=== PATIENT | male | born 1965 | race Caucasian/White ===

== ENCOUNTER 2020-10-22 15:00 | Outpatient (RCR) | payer MEDICARE, MEDICAID, SELFPAY ==
--- NOTE | 2020-10-27 14:33 | MHC.PT.DC ---
[facility] [place] Office [place] Office [place] Office [address] Yonathan Sharma [address] [phone] F: [phone] F: [phone] F: [phone] F: [phone] Physical Therapy Discharge Report Diagnosis: RIGHT SIDED WEAKNESS S/P CVA 2018 () Date of Surgery: NA Date of Evaluation: 08/04/20 Date of Discharge: 10/27/20 Treatments to Date: 14 Cancellations to Date: 1 No Shows to Date: 0 Discharge Status: Improved Function Independent with HEP Patient Elected to Stop Discharge Summary: Hayden phoned the office cancelling last appointments as he feels he has plateaued in treatment. At this time we would continue to recommend a custom AFO as his current brace does not allow for dorsiflexion assist and tends to cause greater foot drag. He demonstrates improved gait pattern with mock AFO in slight dorsiflexion. Electronically signed by: Zena Rutherford PT, DPT Please sign and return to therapist. Thank you for your referral.
== END 2020-10-27 14:33 | disposition home or self-care (01) ==
LOC: HO.PT 15:00
PROVIDERS: PCP Emergency Medicine; Visit Provider Nurse Practitioner
DX: R35.1 Nocturia (principal)
CPT/HCPCS: 97014; 97110; 97116; 97140; 97162; 97530; 97535

== ENCOUNTER 2021-07-19 10:27 | Emergency (ER) | payer MEDICARE, MEDICAID, SELFPAY ==
--- NOTE | ~2021-07-19 | XR_ITS ---
EXAMINATION: XR HAND, LEFT CLINICAL INFORMATION: Left hand redness and swelling. COMPARISON: None TECHNIQUE: PA, lateral, and oblique views of the left hand. FINDINGS: No acute fracture or dislocation. Prominent dorsal hand swelling without radiopaque foreign body or abnormal soft tissue calcification. Mild joint space narrowing with small marginal osteophytes at the triscaphe and 1st carpometacarpal joints as well as scattered throughout the metacarpophalangeal and interphalangeal joints. No osseous erosion. XR/XR hand LT 2V IMPRESSION: Prominent dorsal soft tissue swelling without acute osseous abnormality or radiopaque foreign body. Scattered mild osteoarthritis.
[2021-07-19 10:39] VITALS: BP 104/72; BP 156/99; PULSE 108; PULSE 96; RESP 16; TEMP 36.6; O2SAT 97; BMI 35.6
--- NOTE | 2021-07-19 10:44 | ED.EXTPRO ---
HPI - Extremity Problem General Chief complaint: Extremity Injury, Upper Stated complaint: SWOLLEN HAND, RASH ON ARM Time Seen by Provider: 07/19/21 10:44 Source: patient Mode of arrival: ambulatory Limitations: no limitations History of Present Illness HPI Narrative: Patient is a 55 year old male presenting to the emergency department today with a swollen hand. Patient states that he hasn't done anything to his hand but he woke up this morning and it was very swollen. Patient denies any dizziness, lightheadedness, abdominal pain, nausea, vomiting, fever, chills, blurry vision, double vision, loss of vision, chest pain, difficulty breathing, shortness of breath, back pain, night sweats, pain with urination, increased urinary frequency, increased urinary urgency, blood in his urine or stool, syncope or a near syncopal episode, recent trauma or falls, bowel incontinence, bladder incontinence, bowel retention, bladder retention, or any other complaints at this time. Patient states that he does not hav eany medical problems. MD Complaint: extremity swelling Onset (ago): hour(s) Location: left Severity scale (1-10): 3 Radiation: none Relieving factors: nothing Exacerbating factors: nothing Associated symptoms: denies other symptoms Related Data Previous Rx's Medication Instructions Recorded cephalexin 500 mg capsule 500 mg PO Q6H 7 Days #28 cap 07/19/21 Allergies Allergy/AdvReac Type Severity Reaction Status Date / Time No Known Allergies Allergy Unverified 11/07/19 17:09 [No Known Allergies*] Review of Systems Constitutional: Constitutional: Reports no additional constitutional complaints, Denies chills, Denies fever(s) and Denies night sweats Eyes: Eyes: Reports no additional eye complaints, Denies blurry vision, Denies change in vision, Denies diplopia, Denies eye discharge, Denies loss of vision and Denies eye pain ENT: Denies dizziness Cardiovascular: Cardiovascular: Reports no additional cardiovascular complaints, Denies chest pain, Denies lightheadedness, Denies Loss of Consciousness and Denies dyspnea Respiratory: Respiratory: Reports no additional respiratory complaints and Denies dyspnea Gastrointestinal: Gastrointestinal: Reports no additional gastrointestinal complaints, Denies abdominal pain, Denies melena, Denies hematochezia, Denies change in bowel habits and Denies change in stool character Genitourinary: Genitourinary: Reports no additional male genitourinary complaints, Denies hematuria, Denies oliguria, Denies difficulty urinating, Denies dysuria, Denies urinary frequency, Denies urinary hesitancy, Denies urinary incontinence and Denies urinary urgency Musculoskeletal: Musculoskeletal: Reports no additional musculoskeletal complaints, Denies numbness and Denies tingling Comments: left hand swelling Neurologic: Denies dizziness, Denies loss of vision, Denies numbness and Denies tingling Psychiatric: Psychiatric: Reports no additional psychiatric complaints Endocrine: Endocrine: Reports no additional endocrine complaints Hematologic/Lymphatic: Hematologic/Lymphatic: Reports no additional hematologic/lymphatic complaints Allergic/Immunologic: Allergic/Immunologic: Reports no additional allergic/immunologic complaints PMFSH Past Medical History Attestation statement: The following information was validated with the patient. Source: old records reviewed Social History Social History Advance Directives: No Advance Directives Information Provided: No Physical Exam Vital Signs: Vital Signs: Last Vital Signs Temp 98 F 07/19/21 10:39 Pulse 108 H 07/19/21 10:39 Resp 16 07/19/21 10:39 BP 156/99 H 07/19/21 10:39 Pulse Ox 97 07/19/21 10:39 BMI result Body Mass Index 35.6 Const: General: cooperative, no acute distress, alert and awake Nutritional Appearance: well nourished Orientation/consciousness: patient oriented x3 Limitations: no limitations HEENT: Head: Yes normal to inspection and Yes atraumatic Ears: hearing grossly normal bilaterally and external ears normal General nose exam: Normal external nose present, no nasal discharge noted and no epistaxis Face and sinus: Yes normal facial exam, No abrasion and No laceration Mouth: Normal oral and palatal mucosa present, no drooling and no muffled voice Eyes: General: appearance normal, both eyes and all related structures Periorbital: periorbital findings normal Eyelids: Yes eyelids normal Conjunctivae: conjunctivae normal Pupils: Equal, round and reactive pupils present EOM: EOMs intact bilaterally Neck: Neck: Yes normal visual inspection, Yes full ROM and Yes no lymphadenopathy Chest: Chest palpation & inspection: normal inspection of the chest Resp: Effort & Inspection: normal respiratory effort and able to speak in complete sentences Auscultation: clear to auscultation bilaterally Cardio: Rate: regular rate Rhythm: regular rhythm GI: Inspection: Yes normal to inspection Neuro: General: patient oriented x3 and moves all extremities Cranial nerves: Yes Equal, round and reactive pupils present Cognition (Neuro): normal cognition Motor exam (neuro): 5/5 motor strength present throughout Sensory Exam: Normal double simultaneous stimulation for sensation Coordination: [id number] test normal Extrem: Other: dorsal aspect of the left hand is swollen with warmth and redness, consistent with cellulitis General: Yes full ROM and Yes capillary refill normal Psych: Appearance: grossly normal Mental Status: mental status grossly normal Affect: normal affect Attitude: cooperative Thought process: Normal thought process present Thought content: Normal thought content present Insight: Good insight present (Psych) MDM - Extremity (Nontraumatic) MDM Narrative Medical decision making narrative: Patient is a 55 year old male presenting to the emergency department today with left hand swelling. Patient's physical exam showed swelling, warmth, and redness to the dorsal aspect of the left hand but was otherwise unremarkable. Patient's ROM, circulation, strength, and sensation were intact to the entire left upper extremity. Patient's left hand x-ray showed no acute bony process. I explained my physical exam findings as well as all test results to the patient. I answered all questions asked by the patient. Patient received a dose of ABX while in the department. I stressed the importance of the patient taking his medication as prescribed. I stressed the importance of the patient following up with his primary care provider. I stressed the importance of the patient returning to the emergency department immediately if his symptoms were to worsen or if he were to develop any dizziness, shortness of breath, difficulty breathing, chest pain, blurry vision, loss of vision, nausea, vomiting, abdominal pain, fever, chills, back pain, or any other complaints. Patient verbalized agreement and understanding with this treatment plan and discharge. Differential Diagnosis Differential diagnosis: Likely cellulitis Medical Records Attestation: I reviewed the patient's medical records. Imaging Data Left hand X-ray: Attestation: I personally reviewed and interpreted this imaging study as follows: My impression: Soft tissue swelling but no acute fracture. Radiologist's impression: EXAMINATION: XR HAND, LEFT CLINICAL INFORMATION: Left hand redness and swelling.? COMPARISON: None? TECHNIQUE: PA, lateral, and oblique views of the left hand. FINDINGS: No acute fracture or dislocation. Prominent dorsal hand swelling without radiopaque foreign body or abnormal soft tissue calcification. Mild joint space narrowing with small marginal osteophytes at the triscaphe and 1st carpometacarpal joints as well as scattered throughout the metacarpophalangeal and interphalangeal joints. No osseous erosion.? XR/XR hand LT 2V IMPRESSION: Prominent dorsal soft tissue swelling without acute osseous abnormality or radiopaque foreign body. ? Scattered mild osteoarthritis. Dictated By: Glenn Quintanilla MD Signed By: Electronically signed by Glenn Quintanilla MD 07/19/21 1217 Discharge Plan Discharge Clinical Impression: Cellulitis Patient Disposition: Home, Self-Care Instructions: Cellulitis (DC) Additional Instructions: Follow up with your primary care provider. Return to the emergency department immediately if your symptoms worsen or if you develop any dizziness, shortness of breath, difficulty breathing, chest pain, blurry vision, loss of vision, nausea, vomiting, abdominal pain, fever, chills, back pain, or any other complaints. Prescriptions: New cephalexin 500 mg capsule 500 mg PO Q6H 7 Days Qty: 28 0RF Referrals: [facility] [Primary Care Provider] - Interventions: ED Discharge Assessment Last Done: 07/19/21 11:43 Discharge Date/Time: 07/19/21 11:43 Print Language: Yakut
[2021-07-19] MEDS: cephALEXin 500 MG CAPSULE PO (11:38)
== END 2021-07-19 11:43 | disposition home or self-care (01) ==
PROVIDERS: Emergency Provider Emergency Medicine
DX: L03.114 Cellulitis of left upper limb (principal)
CPT/HCPCS: 73120; 99283

== ENCOUNTER 2021-10-19 15:44 | Outpatient (REF) | payer MEDICARE, SELFPAY ==
--- NOTE | ~2021-10-19 | XR_ITS ---
EXAMINATION: XR CHEST CLINICAL INFORMATION: Chronic cough COMPARISON: Prior chest radiograph 05/07/2013 TECHNIQUE: 2 views of the chest were obtained. FINDINGS: with a mild diffuse interstitial infiltrate suspicious for pneumonitis. No pleural effusion. The heart and pulmonary vessels are normal. XR/XR chest 2V IMPRESSION: Query bilateral pneumonitis. Recommend follow-up.
== END 2021-10-19 15:45 | disposition home or self-care (01) ==
LOC: HO.XRAY 15:44
PROVIDERS: Absent Provider Registered Nurse; PCP Registered Nurse; Visit Provider Nurse Practitioner
DX: R05.3 Chronic cough (principal)
CPT/HCPCS: 71046

== ENCOUNTER → 2021-11-26 14:10 | Outpatient (BNVA) | payer MEDICARE, SELFPAY | PROVIDERS: PCP Registered Nurse; Visit Provider Internal Medicine Pulmonary Disease | DX: J84.9 Interstitial pulmonary disease, unspecified (principal); R05.9 Cough, unspecified | CPT/HCPCS: 99202 ==

== ENCOUNTER 2021-12-03 12:49 | Outpatient (REF) | payer MEDICARE, MEDICAID, SELFPAY ==
--- NOTE | ~2021-12-03 | CT_ITS ---
EXAMINATION: CT CHEST WITHOUT CONTRAST CLINICAL INFORMATION: Interstitial pulmonary disease. COMPARISON: Chest x-ray 10/19/2021 TECHNIQUE: Multidetector volumetric CT imaging of the chest was done. Axial MIP volume rendering provided. Sagittal and coronal reformatted images were obtained. This CT examination was performed using dose optimization techniques as appropriate, variously including the following: *Automated exposure control *Adjustment of mA and/or kV according to patient size (this includes techniques or standardized protocols for targeted exams where dose is matched to indication/reason for exam; i.e. 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 LUNGS: The lungs are well-expanded and clear of acute pneumonic process. There is a scattered ill-defined subpleural groundglass attenuation and reticulation in both upper lobes and both lower lobes. Central patchy groundglass attenuation is seen in the right middle lobe as well. No mild bronchiectasis is visualized in both lower lobes but no peribronchial thickening seen. No pulmonary nodule, mass or consolidation seen. MEDIASTINUM: Thyroid lobes are symmetric and normal. The central trachea and bronchi are widely patent. Small shotty lymph nodes are seen in the mediastinum. Heart size and pulmonary vascularity is normal. No pericardial effusion seen. No abnormal size mediastinal or hilar lymph nodes seen. CORONARY ARTERY CALCIFICATION: Mild coronary artery calcifications are present. PLEURA: There is no pleural effusion. No pleural mass or thickening. AXILLA: No abnormal axillary lymph nodes or mass seen. UPPER ABDOMEN: Visualized liver, spleen, pancreas and right adrenal gland is unremarkable. There is a left adrenal 7 mm nodule measuring -15 Hounsfield units. OSSEOUS STRUCTURES: No aggressive lytic or sclerotic process seen. There is mild ventral spondylosis mid and lower dorsal spine. CT/CT chest wo IV con IMPRESSION: Scattered ill-defined subpleural groundglass attenuation and reticulation both upper, lower lobes and more central groundglass attenuation right lower lobe likely chronic changes. No focal acute pneumonic process, pulmonary nodule or mediastinal abnormal adenopathy seen. Fleischner guidelines were followed.
== END 2021-12-03 12:50 | disposition home or self-care (01) ==
LOC: HO.CT 12:49
PROVIDERS: PCP Registered Nurse; Visit Provider Internal Medicine Pulmonary Disease
DX: J84.9 Interstitial pulmonary disease, unspecified (principal)
CPT/HCPCS: 71250

== ENCOUNTER 2021-12-17 16:26 | Outpatient (REF) | payer MEDICARE, MEDICAID, SELFPAY ==
[2021-12-17 18:31] LABS: Alanine Aminotransferase 27 U/L (0-40); Albumin Level 4.7 g/dL (3.5-5.0); Alkaline Phosphatase 91 U/L (39-117); Anion Gap 18 (12-20); Aspartate Amino Transferase 21 U/L (5-37); Bilirubin Total 1.6 mg/dL (0.0-1.0); Blood Urea Nitrogen 12 mg/dL (9-16); Calcium 9.6 mg/dL (8.4-10.2); Carbon Dioxide 20 mmol/L (22-29); Chloride 106 mmol/L (96-108); Estimated Glomerular Filt Rate > 60; Glucose Random 84 mg/dL (60-115); Lipase 31 U/L (8-78); Potassium 3.9 mmol/L (3.3-5.1); Sodium 140 mmol/L (135-145)
[2021-12-17 18:51] LABS: TSH reflex Free T4 2.02 uIU/mL (0.32-4.0)
== END 2021-12-17 16:27 | disposition home or self-care (01) ==
LOC: HO.LAB 16:26
PROVIDERS: PCP Registered Nurse; Visit Provider Nurse Practitioner Family
DX: R10.9 Unspecified abdominal pain (principal); K59.00 Constipation, unspecified; K21.9 Gastro-esophageal reflux disease without esophagitis
CPT/HCPCS: 36415; 80053; 83690; 84443; 99202

== ENCOUNTER 2021-12-19 21:30 | Outpatient (REF) | payer MEDICARE, MEDICAID, SELFPAY ==
[2021-12-29 14:36] LABS: Pancreatic Elastase-1 >500 mcg/g
== END 2021-12-19 21:31 | disposition home or self-care (01) ==
LOC: HO.LNP 21:30
PROVIDERS: Visit Provider Nurse Practitioner Family
DX: R10.9 Unspecified abdominal pain (principal); K21.9 Gastro-esophageal reflux disease without esophagitis; K59.00 Constipation, unspecified
CPT/HCPCS: 82656

== ENCOUNTER → 2021-12-24 13:06 | Outpatient (BNVA) | payer MEDICARE, MEDICAID, SELFPAY | PROVIDERS: PCP Registered Nurse; Visit Provider Internal Medicine Pulmonary Disease | DX: J84.9 Interstitial pulmonary disease, unspecified (principal); R05.9 Cough, unspecified | CPT/HCPCS: 99212 ==

== ENCOUNTER 2022-01-27 10:59 | Outpatient (REF) | payer MEDICARE, MEDICAID, SELFPAY ==
--- NOTE | 2022-01-27 12:05 | PFT_ITS ---
Forced vital capacity 87%, FEV1 92%. CYD27-24 is 121%. MVV 27. Post bronchodilator therapy, there is no change. Total lung capacity 79%. Residual volume 61%. Diffusion capacity is 80. CONCLUSION: Normal pulmonary function test except for: 1. Mild restrictive pattern. 2. Markedly decreased MVV, which is probably due to poor effort. Clinical correlation is recommended. MD MARIBELL Zapien/MODL / [id number]
== END 2022-01-27 11:00 | disposition home or self-care (01) ==
LOC: HO.RESP 10:59
PROVIDERS: PCP Registered Nurse; Visit Provider Internal Medicine Pulmonary Disease
DX: J84.9 Interstitial pulmonary disease, unspecified (principal)
CPT/HCPCS: 94060; 94727; 94729

== ENCOUNTER 2022-02-08 16:00 | Outpatient (RCR) | payer MEDICARE, MEDICAID, SELFPAY ==
--- NOTE | 2021-12-29 15:16 | MHC.PT.EP ---
[facility] [place] Office [place] Office [place] Office [address] Yonathan Sharma [address] [phone] F: [phone] F: [phone] F: [phone] F: [phone] Physical Therapy Plan of Care Date of Evaluation: Date of Surgery: Diagnosis: RIGHT FOOT DROP Assessment: Patient is 56 y.o male who presents to PT with dx of R foot drop following CVA in 2018 causing R hemiplegia on R UE and R LE. He recently (1 month) received AFO for R foot and wants to return to PT for gait training with AFO, strengthening and balance. He presents with poor balance, impaired gait, weakness in R LE with significant compensations. He is globally deconditioned, sedentary, and requires skilled and monitored PT to improve his functional mobility and prevent deterioration of condition. Frequency and Duration: The patient will be seen 2x/week for 4 weeks Short Term Goals: 2 weeks He is showing compliance with daily HEP to work on endurance. He is presenting with better safety awareness with stand to sit, standing with proper weight distribution over LEs, and with use of rollater. Clerk Rating Goals: 4 weeks He presents with improved gait pattern with use of AFO without circumduction of R LE, improved R hip flexion strength 4/5. He presents with increased R knee extension 4/5 to reduce knee buckling in standing for standing at home with ADLs (cooking, bathing). Treatment Plan: Modalities to reduce pain, spasms and effusion. Manual therapy to restore motion and function. Therapeutic exercise to improve strength and flexibility. Neuromuscular re-education for posture and balance. Therapeutic activities to return to functional activities of daily living. Electronically signed by: Venkatesh Harvey, PT, DPT Please sign and return to therapist. Thank you for your referral.
--- NOTE | 2022-03-17 11:52 | MHC.PT.DC ---
[facility] [place] Office [place] Office [place] Office [address] Yonathan Sharma [address] [phone] F: [phone] F: [phone] F: [phone] F: [phone] Physical Therapy Discharge Report Diagnosis: RIGHT FOOT DROP Date of Surgery: Date of Evaluation: 12/29/21 Date of Discharge: 03/17/22 Treatments to Date: 9 Cancellations to Date: 2 No Shows to Date: 1 Discharge Status: Patient Elected to Stop Discharge Summary: Patient ceased attending PT on his own accord as of 01/2022. He is therefore discharged from PT at this time. Electronically signed by: Venkatesh Harvey, PT, DPT Please sign and return to therapist. Thank you for your referral.
== END 2022-03-17 11:52 | disposition home or self-care (01) ==
LOC: HO.PT 16:00
PROVIDERS: PCP Registered Nurse; Visit Provider Registered Nurse
DX: M21.371 Foot drop, right foot (principal)
CPT/HCPCS: 97110; 97112; 97116; 97162; 97530

== ENCOUNTER → 2022-02-24 13:50 | Outpatient (BNVA) | payer MEDICARE, MEDICAID, SELFPAY | PROVIDERS: PCP Registered Nurse; Visit Provider Internal Medicine Pulmonary Disease | DX: J84.9 Interstitial pulmonary disease, unspecified (principal) | CPT/HCPCS: 99212 ==

== ENCOUNTER 2023-03-29 14:54 | Outpatient (REF) | payer OTHER, SELFPAY ==
--- NOTE | ~2023-03-29 | CT_ITS ---
EXAMINATION: CT CHEST WITHOUT CONTRAST CLINICAL INFORMATION: Interstitial lung disease COMPARISON: Previous chest CT most recent November 2021 TECHNIQUE: Multidetector volumetric CT imaging of the chest was done. Axial MIP volume rendering provided. Sagittal and coronal reformatted images were obtained. This CT examination was performed using dose optimization techniques as appropriate, variously including the following: *Automated exposure control *Adjustment of mA and/or kV according to patient size (this includes techniques or standardized protocols for targeted exams where dose is matched to indication/reason for exam; i.e. 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 Patchy areas of mild increased central or peribronchial groundglass attenuation in the right upper lobe. This appears improved from November 2021 exam. Other scattered areas of increased groundglass attenuation seen on prior exam have resolved. Question mild increased peripheral reticular markings at the lung bases. No endobronchial or endotracheal lesion. MEDIASTINUM: The mediastinum is normal. CORONARY ARTERY CALCIFICATION: Mild PLEURA: There is no pleural effusion. No pleural mass or thickening. AXILLA: No lymphadenopathy. UPPER ABDOMEN: Unremarkable. OSSEOUS STRUCTURES: Unremarkable. CT/CT chest wo IV con IMPRESSION: Mild increased central or peribronchial groundglass attenuation in the right upper lobe. Other patchy areas of groundglass attenuation November 2021 exam have resolved. Question mild increased peripheral or subpleural reticular at the lung bases. Fleischner guidelines were followed.
== END 2023-03-29 14:55 | disposition home or self-care (01) ==
LOC: HO.CT 14:54
PROVIDERS: PCP Registered Nurse; Visit Provider Internal Medicine Pulmonary Disease
DX: J84.9 Interstitial pulmonary disease, unspecified (principal)
CPT/HCPCS: 71250

== ENCOUNTER 2023-05-16 09:42 | Outpatient (AMB) | payer OTHER, SELFPAY ==
--- NOTE | 2023-05-16 10:16 | A.OFFVIS_ITS ---
Intake Vital Signs 05/16/23 10:17 Height 5 ft 6 in Weight 210 lb BMI 33.9 BP 118/77 Blood Pressure Location Rt brachial Position Sitting Pulse 69 Pulse Source Doppler Pulse Oximetry (%) 95 Oxygen Delivery Method Room Air Intake Visit Reasons: pneumonitis Allergies No Known Allergies [No Known Allergies*] Allergy (Verified 02/24/22 13:53) HPI pneumonitis HPI Details 57-year-old gentleman with no prior hist ory of lung disease, but underlying history of CVA in 2018 with some residual right-sided deficits Now followed for LD/IPF. Patient had a follow-up CT chest in February of 2023 that showed mild increase in peripheral reticulation. He also complains of productive cough today. [facility] Surgical History (Updated 12/17/21 @ 15:39 by Lucas Quiroz) History of ankle surgery Family History (Updated 12/17/21 @ 15:39 by Lucas Quiroz) Mother Heart disease Social History Household Members: Other Alcohol intake: current Patient Tobacco Use Status: Never used Tobacco Review of Systems Const Denies daytime sleepiness, Denies excessive sweating, Denies fatigue, Denies fever(s), Denies lethargy, Denies malaise, Denies night sweats, Denies snoring and Denies weight loss Eyes Denies blurry vision and Denies itchy eyes ENT Denies nasal congestion, Denies post nasal drip, Denies sinus pain, Denies sinus pressure and Denies other ( Thrush) Card Denies chest pain, Denies pedal edema, Denies dyspnea, Denies orthopnea and Denies paroxysmal nocturnal dyspnea Resp Reports cough, Denies hemoptysis, Denies excessive phlegm production, Denies dyspnea, Denies snoring and Denies wheezing GI Denies abdominal pain and Denies heartburn Musc Denies myalgias, Denies arthralgias and Denies joint swelling Skin/Breast Denies rash Neuro Denies memory loss and Denies seizure-like activity Psych Denies abnormal sleep pattern, Denies anxiety and Denies memory loss Endo Denies excessive sweating, Denies fatigue and Denies heat intolerance Benitez/Lymph Denies easy bruising Aller/Immun Denies itchy eyes, Denies seasonal rhinorrhea and Denies wheezing Physical Exam Vital Signs: Last Vital Signs Pulse 69 05/16/23 10:17 BP 118/77 05/16/23 10:17 Pulse Ox 95 05/16/23 10:17 Oxygen Delivery Method Room Air 05/16/23 10:17 BMI result Body Mass Index 33.9 Const General: no acute distress and alert Nutritional Appearance: not obese Orientation/consciousness: Other orientation findings ( oriented) HEENT Head: Yes atraumatic Eyes General: appearance normal, both eyes and all related structures Sclerae: sclerae normal EOM: EOMs intact bilaterally Neck Neck: Yes supple Lymphatic: no lymphadenopathy noted Resp Effort & Inspection: normal respiratory effort and no use of accessory muscles Auscultation: clear to auscultation bilaterally Cardio Rate: regular rate Rhythm: regular rhythm Heart sounds: no gallops, no murmurs and no rubs Skin General skin exam: other ( warm) Extrem General: No clubbing, No cyanosis and No edema Assessment & Plan Assessment & Plan (1) ILD (interstitial lung disease): Code(s): J84.9 - Interstitial pulmonary disease, unspecified Plan: Results of CT chest reviewed, mild increasing peripheral reticulation, no overt increasing fibrosis. Will repeat CT chest in 12 months. (2) Cough: Code(s): R05.9 - Cough, unspecified Plan: Now with productive cough. Will treat with a course of azithromycin. Medications: New azithromycin For 250 mg dose pack: take 500 mg today (day 1), then 250 mg for 4 days (days 2-5) PO 6 tabs 0RF Coding Level of Care Code Est Pt Level 4 (41157) Diagnoses ILD (interstitial lung disease) J84.9 Cough R05.9
[2023-05-16 10:17] VITALS: BP 118/77; PULSE 69; O2SAT 95; BMI 33.9
== END 2023-05-16 10:45 | disposition home or self-care (01) ==
PROVIDERS: PCP Registered Nurse; Visit Provider Internal Medicine Pulmonary Disease
DX: J84.9 Interstitial pulmonary disease, unspecified (principal); R05.9 Cough, unspecified
CPT/HCPCS: 99214

== ENCOUNTER → 2023-05-16 09:42 | Outpatient (BNVA) | payer OTHER, SELFPAY | PROVIDERS: PCP Registered Nurse; Visit Provider Internal Medicine Pulmonary Disease | DX: J84.9 Interstitial pulmonary disease, unspecified (principal); R05.9 Cough, unspecified | CPT/HCPCS: 99212 ==

== ENCOUNTER 2023-12-29 10:09 | Outpatient (REF) | payer OTHER, SELFPAY ==
[2023-12-29 11:52] LABS: Basophils Absolute Auto 0.1 X10*3/uL (0.0-0.2); Basophils Percent Auto 0.7 % (0-2); Eosinophils Absolute Auto 0.3 X10*3/uL (0.0-0.4); Eosinophils Percent Auto 3.5 % (0-4); Hematocrit 42.7 % (42.0-52.0); Imm Gran Abs Auto 0.02 X10*3/uL (0.00-0.03); Imm Gran Pct Auto 0.2 % (0.0-0.4); MANUAL DIFF FLAG NO; Mean Corpuscular HGB Conc 35.1 g/dl (31.0-36.0); Mean Corpuscular Hemoglobin 30.9 pg (27.0-33.0); Mean Platelet Volume 9.1 fL (9.4-12.4); Monocytes Absolute Auto 0.6 X10*3/uL (0.1-1.2); Monocytes Percent Auto 6.8 % (2-11); Neutrophils Absolute Auto 5.9 x10*3/uL (2.0-8.3); Neutrophils Percent Auto 66.8 % (45-73); Platelet Count 331 X10*3/uL (160-400); Red Blood Count 4.85 X10*6/uL (4.60-5.80); Red Cell Distribution Width 11.9 % (11.0-16.0); White Blood Count 8.9 X10*3/uL (4.8-10.8)
[2023-12-29 12:08] LABS: Estimated Average Glucose 100 mg/dL; Hemoglobin A1C 128.5819 umol/L; Hemoglobin A1c % 5.1 % (<6.0); Total Hemoglobin (HGBA1C) 4056.6085 umol/L
[2023-12-29 12:39] LABS: Alanine Aminotransferase 33 U/L (0-40); Albumin Level 4.1 g/dL (3.5-5.0); Alkaline Phosphatase 73 U/L (39-117); Anion Gap 13 (12-20); Aspartate Amino Transferase 36 U/L (5-37); Blood Urea Nitrogen 13 mg/dL (9-16); Calcium 9.1 mg/dL (8.4-10.2); Carbon Dioxide 23 mmol/L (22-29); Chloride 109 mmol/L (96-108); Cholesterol 118 mg/dL (<200); Estimated Glomerular Filt Rate > 60; Glucose Random 94 mg/dL (60-115); HDL Cholesterol 38 mg/dL (>40); LDL Cholesterol Calculated 59 mg/dL (<100); Potassium 3.6 mmol/L (3.3-5.1); Sodium 141 mmol/L (135-145); Total Protein 7.2 g/dL (6.5-8.0); Triglycerides 107 mg/dL (<150)
== END 2023-12-29 10:10 | disposition home or self-care (01) ==
LOC: HO.HHCL 10:09
PROVIDERS: Visit Provider Internal Medicine Geriatric Medicine
DX: Z13.1 Encounter for screening for diabetes mellitus (principal); R10.11 Right upper quadrant pain; Z79.899 Other long term (current) drug therapy
CPT/HCPCS: 36415; 80053; 80061; 83036; 85025

== ENCOUNTER 2024-01-10 08:43 | Outpatient (REF) | payer OTHER, SELFPAY | END 2024-01-10 08:44 | disposition home or self-care (01) | LOC: HO.US 08:43 | PROVIDERS: PCP Internal Medicine Geriatric Medicine; Visit Provider Internal Medicine Geriatric Medicine | DX: R10.11 Right upper quadrant pain (principal) | CPT/HCPCS: 76700 ==

== ENCOUNTER 2024-01-17 10:43 | Emergency (ER) | payer OTHER, SELFPAY ==
--- NOTE | ~2024-01-17 | XR_ITS ---
EXAMINATION: XR HAND, LEFT CLINICAL INFORMATION: Swelling of the hand, no known injury. COMPARISON: 07/19/2021. TECHNIQUE: PA, lateral, and oblique views of the left hand. FINDINGS: No fracture, dislocation, or suspicious focal bony abnormality. No erosions or regions focal osteopenia. There is normal alignment of the bones of the hand and carpus. Joint spaces are largely preserved with mild osteoarthritis in the fifth digit DIP joint. Mild changes also noted at the first CMC joint and STT joints. There is negative ulnar variance. There is diffuse soft tissue swelling and subcutaneous edema predominantly dorsum of hand and wrist. No soft tissue emphysema or radiopaque foreign body seen. XR/XR hand LT min 3V IMPRESSION: 1. No acute bony findings. 2. Diffuse soft tissue swelling. Electronically signed by: Marek Enciso MD 01/17/2024 12:44 PM GEENA
[2024-01-17 10:55] VITALS: BP 112/84; PULSE 89; RESP 18; TEMP 37; O2SAT 97; BMI 36.2
== END 2024-01-17 19:00 | disposition left against medical advice (07) ==
LOC: HO.ED 18:51
PROVIDERS: Emergency Provider Emergency Medicine
DX: M79.89 Other specified soft tissue disorders (principal); M79.642 Pain in left hand; Z53.21 Procedure and treatment not carried out due to patient leaving prior to being seen by health care provider
CPT/HCPCS: 73130; 99281

== ENCOUNTER → 2024-01-17 11:15 | Outpatient (BNV) | payer OTHER, SELFPAY | PROVIDERS: Visit Provider Radiology Diagnostic Radiology | DX: R22.32 Localized swelling, mass and lump, left upper limb (principal) | CPT/HCPCS: 73130 ==